=== PATIENT | female | born 1965 ===

== ENCOUNTER 2016-11-03 14:59 | Emergency (ER) | payer MEDICAID ==
[2016-11-03 15:12] VITALS: BMI 43.2
[2016-11-03] MEDS ORDERED: Sodium Chloride 0.9% 1,000 ML IV STA (15:18)
[2016-11-03] MEDS ORDERED: DiphenhydrAMINE 50 mg/ml Inj IVP STA (15:18)
--- NOTE | 2016-11-03 15:25 | ED PDOC ---
Arrival/HPI - General Chief Complaint: Anxiety Time Seen by Provider: 11/03/16 15:00 Historian: Patient - History of Present Illness Narrative History of Present Illness (Text): 11/03/16 15:23 51 y/o female, pmh including hyperlipidemia, post menopausal, nkda, no psychiatric history, c/o anxiety x 1 week. Pt. stated that she has been feeling very anxious this week, unable to sleep well, been having generalized headache, no change in vision, no nausea or vomiting, no numbness or tingling, no homicidal or suicidal ideation, no change in posture, no neck stiffness, no other medical or psychological complaints. Past Medical History - Provider Review Nursing Documentation Reviewed: Yes - Infectious Disease Hx of Infectious Diseases: None - Tetanus Immunization Tetanus Immunization: Unknown - Reproductive Menopause: Yes - Cardiac Hx Cardiac Disorders: Yes Hx Hypertension: Yes (no meds) - Pulmonary Hx Respiratory Disorders: No - Neurological Hx Neurological Disorder: No - HEENT Hx HEENT Disorder: No - Renal Hx Renal Disorder: No - Endocrine/Metabolic Hx Endocrine Disorders: No - Hematological/Oncological Hx Blood Disorders: Yes Hx Anemia: Yes - Integumentary Hx Dermatological Disorder: No - Musculoskeletal/Rheumatological Hx Musculoskeletal Disorders: No - Gastrointestinal Hx Gastrointestinal Disorders: No - Genitourinary/Gynecological Hx Genitourinary Disorders: No - Psychiatric Hx Psychophysiologic Disorder: Yes Hx Anxiety: Yes (today 11/03/16) Hx Substance Use: No - Surgical History Hx Section: Yes (x3) - Anesthesia Hx Anesthesia: Yes Hx Anesthesia Reactions: No - Suicidal Assessment Feels Threatened In Home Enviroment: No Family/Social History - Physician Review Nursing Documentation Reviewed: Yes Family/Social History: Unknown Family HX Smoking Status: Never Smoked Hx Alcohol Use: No Hx Substance Use: No Hx Substance Use Treatment: No Allergies/Home Meds Allergies/Adverse Reactions: Allergies No Known Allergies Allergy (Verified 11/03/16 15:12) Review of Systems - Review of Systems Constitutional: absent: Fatigue, Fevers Eyes: absent: Vision Changes ENT: absent: Hearing Changes Respiratory: absent: Cough Cardiovascular: absent: Chest Pain Gastrointestinal: absent: Abdominal Pain, Diarrhea, Nausea, Vomiting Musculoskeletal: absent: Arthralgias, Back Pain, Neck Pain, Joint Swelling, Myalgias Neurological: Headache. absent: Dizziness, Focal Weakness, Gait Changes, Speech Changes, Facial Droop, Disequilibrium, Seizure Endocrine: absent: Diaphoresis Hemo/Lymphatic: absent: Adenopathy Psychiatric: Anxiety. absent: Depression, Suicidal Ideation Physical Exam Vital Signs Reviewed: Yes Vital Signs Temp Pulse Resp BP Pulse Ox 11/03/16 16:59 89 18 145/68 99 11/03/16 14:59 98.1 F 88 18 152/77 H 100 Appearance: Positive for: Well-Appearing, Non-Toxic, Comfortable Pain Distress: Moderate Mental Status: Positive for: Alert and Oriented X 3 - Systems Exam Head: Present: Atraumatic, Normocephalic, Other (no temporal artery tenderness) Pupils: Present: PERRL Extroacular Muscles: Present: EOMI Conjunctiva: Present: Normal Ears: Present: NORMAL TM, Normal Canal. No: Erythema Mouth: Present: Moist Mucous Membranes Pharnyx: No: ERYTHEMA, EXUDATE, TONSILS ENLARGED, Peritonsilar Swelling Nose (External): Present: Atraumatic. No: Abrasion, Contusion, Laceration Nose (Internal): Present: Normal Inspection, No Active Bleeding. No: Rhinorrhea , Septal Hematoma, Epistaxis Neck: Present: Normal Range of Motion, Trachea Midline. No: MIDLINE TENDERNESS , Paraspinal Tenderness, Lymphadenopathy Respiratory/Chest: Present: Clear to Auscultation, Good Air Exchange. No: Respiratory Distress, Accessory Muscle Use, Wheezes, Decreased Breath Sounds, Rales, Retracting, Rhonchi Cardiovascular: Present: Regular Rate and Rhythm, Normal S1, S2. No: Murmurs Abdomen: Present: Normal Bowel Sounds. No: Tenderness, Distention, Peritoneal Signs, Rebound, Guarding Back: Present: Normal Inspection Upper Extremity: Present: Normal Inspection. No: Cyanosis, Edema Lower Extremity: Present: Normal Inspection. No: Edema Neurological: Present: GCS=15, CN II-XII Intact, Speech Normal, Motor Func Grossly Intact, Gait Normal, Memory Normal, Other (normal finger to nose test, normal heel to maradiaga test.) Skin: Present: Warm, Dry, Normal Color. No: Rashes Psychiatric: Present: Alert, Oriented x 3, Normal Insight, Normal Concentration Medical Decision Making ED Course and Treatment: 11/03/16 15:21 -labs/ua/uds/drug screen -ekg -chest xray -IVF/reglan/benadryl -PES paged -observe and reassess 11/03/16 16:45 -EKG: NSR @ 75 BPM, no ST elevation or depression, no T wave inversion, no previous ekg available for comparison. -Chest x-ray show no active disease -Labs are non-significant -UA show +UTI, macrobid ordered. -UDS show no signs of drug abuse -Headache resolved with the IVF and medications, likely migraine, no focal neurological deficits, no emergent radiology studies indicated at this time. -Pt. is medically clear and stable for the PES evaluation. -Pending for PES evaluation 11/03/16 17:58 -PES evaluated the patient, suggest to discharge home with no anxiolytic, outpatient psychiatric clinic follow up as the diagnosis will be general anxiety disorder. -headache and anxiety resolved. -Discharge home with macrobid, stay hydrated, bed rest, avoid caffeine/coffee/ tea product, follow up with your own pmd and outpatient psychiatric clinic within 2 days, return to the ER for any new or worsening signs or symptoms. - Lab Interpretations Lab Results: 11/03/16 15:25 11/03/16 15:25 Lab Results 11/03/16 15:45: Urine Opiates Screen Negative, Urine Methadone Screen Negative, Ur Barbiturates Screen Negative, Ur Phencyclidine Scrn Negative, Ur Amphetamines Screen Negative, U Benzodiazepines Scrn Negative, U Oth Cocaine Metabols Negative, U Cannabinoids Screen Negative 11/03/16 15:45: Urine Color Yellow, Urine Appearance Clear, Urine pH 6.0, Ur Specific [place] 1.010, Urine Protein Negative, Urine Glucose (UA) Negative, Urine Ketones Negative, Urine Blood Negative, Urine Nitrate Negative, Urine Bilirubin Negative, Urine Urobilinogen 0.2, Ur Leukocyte Esterase Moderate H, Urine RBC TEST NOT PERFORMED, Urine WBC 10 - 15, Ur Epithelial Cells 10 - 12, Amorphous Sediment Trace 11/03/16 15:25: Alcohol, Quantitative < 10 11/03/16 15:25: Sodium 139, Potassium 3.9, Chloride 104, Carbon Dioxide 25, Anion Gap 14, BUN 11, Creatinine 0.7, Est GFR ( Amer) > 60, Est GFR (Non- Af Amer) > 60, Random Glucose 113 H, Calcium 9.5, Total Bilirubin 0.3, AST 28, ALT 35, Alkaline Phosphatase 82, Total Protein 8.1, Albumin 4.5, Globulin 3.6, Albumin/Globulin Ratio 1.3 11/03/16 15:25: WBC 7.5, RBC 4.53, Hgb 13.4, Hct 39.8, MCV 87.9, MCH 29.6, MCHC 33.7, RDW 14.0, Plt Count 276, MPV 11.7 H, Gran % 74.6 H, Lymph % (Auto) 21.2 L , Darke % (Auto) 3.4, Eos % (Auto) 0.5 L, Baso % (Auto) 0.3, Gran # 5.56, Lymph # 1.6, Darke # 0.3, Eos # 0.0, Baso # 0.02 Interpretation: Abnormal lab values (+UTI) - RAD Interpretation Radiology Orders: 11/03/16 15:18 CHEST PORTABLE [RAD] Stat no active disease [employer] Professional: Radiologist - EKG Interpretation EKG Interpretation (Text): 11/03/16 16:00 NSR @ 75 BPM, no ST elevation or depression, no T wave inversion, no previous ekg available for comparison. Interpreted by ED Physician: Yes Type: 12 lead EKG Comparison: No previous EKG avail. - Medication Orders Current Medication Orders: Discontinued Medications Diphenhydramine HCl (Benadryl) 25 mg IVP STAT STA Stop: 11/03/16 15:19 Last Admin: 11/03/16 15:43 Dose: 25 mg Sodium Chloride (Sodium Chloride 0.9%) 1,000 mls @ 999 mls/hr IV .Q1H1M STA Stop: 11/03/16 16:18 Last Admin: 11/03/16 15:43 Dose: 999 mls/hr Metoclopramide HCl (Reglan) 10 mg IVP STAT STA Stop: 11/03/16 15:19 Last Admin: 11/03/16 15:43 Dose: 10 mg Nitrofurantoin Macrocrystals (Macrobid) 100 mg PO STAT STA Stop: 11/03/16 16:19 Last Admin: 11/03/16 17:23 Dose: 100 mg - PA / BRAND ENGINEER / Resident Statement / has reviewed & agrees with the documentation as recorded. Disposition/Present on Arrival - Present on Arrival Any Indicators Present on Arrival: No History of DVT/PE: No History of Uncontrolled Diabetes: No Urinary Catheter: No History of Decub. Ulcer: No History Surgical Site Infection Following: None - Disposition Have Diagnosis and Disposition been Completed?: Yes Diagnosis: UTI (urinary tract infection), Headache, Generalized anxiety disorder Disposition: HOME/ ROUTINE Disposition Time: 18:00 Patient Plan: Discharge Patient Problems: Current Active Problems Problem Status Onset Generalized anxiety disorder Acute Headache Acute UTI (urinary tract infection) Acute Condition: IMPROVED Discharge Instructions (ExitCare): Migraine Headache (ED), Urinary Tract Infection in Women (ED), Generalized Anxiety Disorder (ED) Print Language: JORDANIAN Additional Instructions: Discharge home with macrobid, stay hydrated, bed rest, avoid caffeine/coffee/ tea product, follow up with your own pmd and outpatient psychiatric clinic within 2 days, return to the ER for any new or worsening signs or symptoms. Prescriptions: Nitrofurantoin Macrocrystals [Macrobid] 100 mg PO BID #14 cap Referrals: PCP,NO [Primary Care Provider] - Follow up with primary [facility] [place] [Outside] - Follow up with primary [facility] [Outside] - Follow up with primary Forms: [employer] (Northern Irish)
[2016-11-03 15:30] VITALS: RESP 18
[2016-11-03 15:32] VITALS: TEMP 98.1
[2016-11-03 15:35] LABS: ADD MANUAL DIFF? NO
[2016-11-03 15:39] LABS: BASO # 0.02 K/mm3 (0.0-2.0); BASO % 0.3 % (0.0-3.0); EOS % 0.5 % (1.5-5.0); GRAN # 5.56 (1.4-6.5); GRAN % 74.6 % (50.0-68.0); HEMATOCRIT 39.8 % (36.0-48.0); LYMPH # 1.6 (1.2-3.4); LYMPH % 21.2 % (22.0-35.0); MEAN CELL VOLUME 87.9 fL (80.0-105.0); MEAN CORPUSCULAR HEMOGLOBIN 29.6 pg (25.0-35.0); MEAN CORPUSCULAR HGB CONC 33.7 g/dl (31.0-37.0); MEAN PLATELET VOLUME 11.7 fl (7.0-11.0); MONO # 0.3 (0.1-0.6); MONO % 3.4 % (1.0-6.0); PLATELET COUNT 276 10^3/uL (120.0-450.0); WHITE BLOOD COUNT 7.5 10^3/ul (4.5-11.0)
[2016-11-03 15:50] LABS: ALB/GLOB RATIO 1.3 (1.1-1.8); ALKALINE PHOSPHATASE 82 U/L (38-133); ALT/SGPT 35 U/L (7-56); AST/SGOT 28 U/L (15-39); BILIRUBIN,TOTAL 0.3 mg/dL (0.2-1.3); BLOOD UREA NITROGEN 11 mg/dL (7-21); CALCIUM 9.5 mg/dL (8.4-10.5); CARBON DIOXIDE 25 mmol/L (21-33); CHLORIDE 104 mmol/L (98-107); GFR AFRICAN-AMERICAN > 60; GLUCOSE,RANDOM 113 mg/dL (70-110); POTASSIUM 3.9 mmol/L (3.6-5.0); SODIUM 139 mmol/L (132-148); TOTAL PROTEIN 8.1 g/dL (5.8-8.3)
[2016-11-03 16:14] LABS: URINE BILIRUBIN NEGATIVE (NEGATIVE); URINE BLOOD NEGATIVE (NEGATIVE); URINE GLUCOSE (UA) NEGATIVE (NEGATIVE); URINE KETONE NEGATIVE (NEGATIVE); URINE LEUKOCYTE ESTERASE MODERATE Leu/uL (NEGATIVE); URINE PROTEIN NEGATIVE mg/dL (<30 mg/dL); URINE UROBILINOGEN 0.2 E.U./dL (<1 E.U./dL)
[2016-11-03 16:15] LABS: URINE APPEARANCE CLEAR (CLEAR); URINE COLOR YELLOW (YELLOW)
[2016-11-03 16:16] LABS: URINE AMORPHOUS SEDIMENT TRACE
--- NOTE | 2016-11-03 17:23 | RAD ---
HISTORY: medical clearance COMPARISON: No prior. FINDINGS: LUNGS: No active pulmonary disease. PLEURA: No significant pleural effusion identified, no pneumothorax apparent. CARDIOVASCULAR: Normal. OSSEOUS STRUCTURES: No significant abnormalities. VISUALIZED UPPER ABDOMEN: Normal. OTHER FINDINGS: None. IMPRESSION: No active disease.
[2016-11-03 17:24] VITALS: BP 145/68; PULSE 89; O2SAT 99
--- NOTE | 2016-11-05 01:40 | CARD ---
APPROVED REPORT EKG Measurement Heart [id number] <Conclusion> Normal sinus rhythm Normal ECG
== END 2016-11-03 18:22 | disposition home or self-care (01) ==
LOC: ED 14:59
DX: F41.1 Generalized anxiety disorder (principal); R51 Headache; N39.0 Urinary tract infection, site not specified; I10 Essential (primary) hypertension
CPT/HCPCS: 71010; 80053; 80320; 80324; 80329; 80345; 80346; 80349; 80353; 80358; 80361; 81001; 83992; 85025; 87086; 90791; 93005; 96361; 96374; 96375; 99283; J1200; J2765; J7040